=== PATIENT | female | born 1945 | race Caucasian/White ===

== ENCOUNTER 2024-12-13 08:32 | Observation (INO) ==
[2024-12-13] MEDS ORDERED: GADOBENATE DIMEGLUMINE 20 ML/VIAL IV ONE (08:33)
[2024-12-13] MEDS ORDERED: IOPAMIDOL 100 ML BOTTLE IV ONE (08:33)
[2024-12-13 09:34] LABS: Basophils # (Auto) 0.02 K/mcL (0.00-0.30); Basophils % (Auto) 0.2 % (0.0-2.0); Eosinophils # (Auto) 0.07 K/mcL (0.00-0.70); Eosinophils % (Auto) 0.6 % (0.0-7.0); Hematocrit 35.9 % (34.1-44.9); Hemoglobin 11.8 g/dL (11.2-15.7); Lymphocytes # (Auto) 0.87 K/mcL (1.50-4.80); Lymphocytes % (Auto) 7.8 % (15.5-49.0); Mean Corpuscular HGB Conc 32.9 g/dL (31.0-36.0); Monocytes # (Auto) 1.36 K/mcL (0.10-0.90); Monocytes % (Auto) 12.1 % (1.0-12.0); Neutrophils % (Auto) 78.8 % (38.0-78.0); Platelet Count 286 K/mcL (140-440); RBC 3.89 M/mcL (3.59-5.38); WBC 11.2 K/mcL (4.5-11.0)
[2024-12-13 09:35] LABS: INR 1.1 (0.9-1.1); Partial Thromboplastin Time 27.3 sec (20.0-37.0); Prothrombin Time 15.1 sec (11.9-14.5)
[2024-12-13 09:40] LABS: ALT/SGPT 7 U/L (<40); AST/SGOT 16 U/L (<32); Albumin 3.7 gm/dL (3.2-5.2); Albumin/Globulin Ratio 1.2 (1.0-2.3); Alkaline Phosphatase 87 U/L (39-117); Anion Gap 10.0 (8.0-16.0); Bilirubin,Total 0.7 mg/dL (0.1-1.0); Blood Urea Nitrogen 25 mg/dL (8-23); Calcium 8.7 mg/dL (8.6-10.4); Carbon Dioxide 26 mmol/L (22-30); Chloride 95 mmol/L (96-108); Globulin 3.2 gm/dL (2.2-3.7); Glucose 237 mg/dL (70-105); Potassium 4.0 mmol/L (3.3-5.1); Sodium 131 mmol/L (133-145)
[2024-12-13 10:19] LABS: Thyroid Stimulating Hormone 0.96 uIU/mL (0.27-5.01)
[2024-12-13 11:13] LABS: Bacteria,Urine 0 /hpf (0); Bilirubin,Urine NEGATIVE (Negative); Color,Urine DK. YELLOW; Glucose,Urine (UA) NEGATIVE (Negative); Ketones,Urine NEGATIVE (Negative); Leukocyte Esterase,Urine NEGATIVE /uL (Negative); PH,Urine 6.0 (5.0-9.0); Protein,Urine NEGATIVE (Negative); Specific Gravity,Urine <= 1.005 (1.000-1.035); Urobilinogen,Urine 0.2 mg/dL
[2024-12-13] MEDS: ATORVASTATIN 40 MG TABLET PO ONE (12:08)
[2024-12-13] MEDS: CLOPIDOGREL 300 MG TABLET PO ONE (12:08)
[2024-12-13] MEDS: ASPIRIN 81 MG TAB.CHEW CHEWED ONE (12:09)
[2024-12-13 12:54] LABS: HDL Cholesterol 44 mg/dL (>40); LDL Cholesterol,Calculated 85 mg/dL (<100); Phosphorous 3.2 mg/dL (2.5-4.5); Triglycerides 80 mg/dL (<150)
[2024-12-13] MEDS ORDERED: ACETAMINOPHEN 325 MG TABLET PO PRN (15:02)
[2024-12-13] MEDS ORDERED: DEXTROSE 31 GM ORAL.SUSP PO PRN (15:02)
[2024-12-13] MEDS ORDERED: SENNOSIDES 1 TABLET PO PRN (15:02)
[2024-12-13] MEDS ORDERED: MELOXICAM 7.5 MG TABLET PO PRN (15:02)
[2024-12-13] MEDS ORDERED: DEXTROSE 50% 50 ML VIAL IV PRN (15:02)
[2024-12-13] MEDS ORDERED: ONDANSETRON 4 MG/2 ML VIAL IV PRN (15:02)
[2024-12-13] MEDS: 0.9 % SODIUM CHLORIDE 10 ML SYRINGE IV SCH (15:04)
[2024-12-13 17:28] LABS: Estimated Average Glucose(eAG) 167 mg/dL; Hemoglobin A1C 7.5 % Hgb (4.0-6.0)
[2024-12-13] MEDS: INSULIN LISPRO 1 UNIT/0.01 ML UNIT SQ SCH (17:28)
[2024-12-13] MEDS: HEPARIN 5,000 UNIT/ML VIAL SQ SCH (20:44)
[2024-12-13] MEDS: BENZONATATE 100 MG CAPSULE PO PRN (20:45)
[2024-12-14 05:52] LABS: Basophils # (Auto) 0.03 K/mcL (0.00-0.30); Basophils % (Auto) 0.4 % (0.0-2.0); Eosinophils # (Auto) 0.13 K/mcL (0.00-0.70); Eosinophils % (Auto) 1.7 % (0.0-7.0); Hematocrit 34.1 % (34.1-44.9); Hemoglobin 11.1 g/dL (11.2-15.7); Lymphocytes # (Auto) 1.03 K/mcL (1.50-4.80); Lymphocytes % (Auto) 13.3 % (15.5-49.0); Mean Corpuscular HGB Conc 32.6 g/dL (31.0-36.0); Monocytes # (Auto) 0.95 K/mcL (0.10-0.90); Monocytes % (Auto) 12.3 % (1.0-12.0); Neutrophils % (Auto) 71.9 % (38.0-78.0); Platelet Count 293 K/mcL (140-440); RBC 3.70 M/mcL (3.59-5.38); WBC 7.7 K/mcL (4.5-11.0)
[2024-12-14 06:13] LABS: Anion Gap 10.0 (8.0-16.0); Blood Urea Nitrogen 22 mg/dL (8-23); Calcium 8.5 mg/dL (8.6-10.4); Carbon Dioxide 26 mmol/L (22-30); Chloride 102 mmol/L (96-108); Glucose 159 mg/dL (70-105); Phosphorous 3.6 mg/dL (2.5-4.5); Potassium 3.8 mmol/L (3.3-5.1); Sodium 138 mmol/L (133-145)
[2024-12-14] MEDS: LEVOTHYROXINE 50 MCG TABLET PO SCH (07:57)
[2024-12-14] MEDS: ASPIRIN 81 MG TAB.CHEW CHEWED SCH (09:49)
[2024-12-14] MEDS: CLOPIDOGREL 75 MG TABLET PO SCH (09:49)
[2024-12-14] MEDS: VITAMIN B COMPLEX 1 CAPSULE PO SCH (09:49)
[2024-12-14] MEDS: TIMOLOL 0.5% OPHTH DROPS BOTTLE 5ML OU SCH (13:16)
[2024-12-14] MEDS: ATORVASTATIN 40 MG TABLET PO SCH (21:38)
[2024-12-14] MEDS: ZOLPIDEM 5 MG TABLET PO PRN (22:19)
[2024-12-15 06:45] LABS: Basophils # (Auto) 0.03 K/mcL (0.00-0.30); Basophils % (Auto) 0.5 % (0.0-2.0); Eosinophils # (Auto) 0.27 K/mcL (0.00-0.70); Eosinophils % (Auto) 4.3 % (0.0-7.0); Hematocrit 33.8 % (34.1-44.9); Hemoglobin 11.0 g/dL (11.2-15.7); Lymphocytes # (Auto) 1.46 K/mcL (1.50-4.80); Lymphocytes % (Auto) 23.1 % (15.5-49.0); Mean Corpuscular HGB Conc 32.5 g/dL (31.0-36.0); Monocytes # (Auto) 0.91 K/mcL (0.10-0.90); Monocytes % (Auto) 14.4 % (1.0-12.0); Neutrophils % (Auto) 57.2 % (38.0-78.0); Platelet Count 313 K/mcL (140-440); RBC 3.65 M/mcL (3.59-5.38); WBC 6.3 K/mcL (4.5-11.0)
[2024-12-15 06:59] LABS: Phosphorous 3.7 mg/dL (2.5-4.5)
[2024-12-15 07:41] LABS: Anion Gap 9.0 (8.0-16.0); Blood Urea Nitrogen 28 mg/dL (8-23); Calcium 8.6 mg/dL (8.6-10.4); Carbon Dioxide 28 mmol/L (22-30); Chloride 104 mmol/L (96-108); Glucose 143 mg/dL (70-105); Potassium 3.8 mmol/L (3.3-5.1); Sodium 141 mmol/L (133-145)
[2024-12-15 10:17] VITALS: TEMP 97.8; O2SAT 96
== END 2024-12-15 11:50 | disposition home or self-care (01) ==
LOC: MEDSUR 08:32 → ED 08:32 → MEDSUR 14:56
PROVIDERS: ADMIT Student in an Organized Health Care Education/Training Program; ATTEND Student in an Organized Health Care Education/Training Program